=== PATIENT | male | born 2005 | race African-American/Black ===

== ENCOUNTER 2024-09-18 12:57 | Emergency (ER) | payer SELFPAY ==
[~2024-09-18] VITALS: Ht 170.2 cm; Wt 68.0 kg
[2024-09-18 13:05] VITALS: O2SAT 100
[2024-09-18 13:19] VITALS: BP 107/53; PULSE 69; RESP 16; TEMP 36.9; O2SAT 100
== END 2024-09-18 14:09 | disposition left against medical advice (07) ==
LOC: ER 13:52
DX: R04.0 Epistaxis (principal); Z53.21 Procedure and treatment not carried out due to patient leaving prior to being seen by health care provider